=== PATIENT | female | born 1970 | race African-American/Black ===

== ENCOUNTER 2018-06-29 10:33 | Day surgery (SDC) | payer OTHER ==
[2018-06-29] VITALS (11 sets, daily range): BP systolic 119–151; BP diastolic 68–98
[~2018-06-29] VITALS: Ht 172.7 cm; Wt 136.1 kg
--- NOTE | 2018-06-29 06:56 | Pre-Procedure Note/Attestation ---
Pre-Procedure Note/Attestation Complete Prior to Procedure Planned Procedure: right Procedure Narrative: rt shoulder revision scope, sad, biceps tenodesis Indications for Procedure Pre-Operative Diagnosis: rt shoulder biceps tendonitis Attestation I attest that I discussed the nature of the procedure; its benefits; risks and complications; and alternatives (and the risks and benefits of such alternatives ), prior to the procedure, with the patient (or the patient's legal education courses sales representative). I attest that, if there was a reasonable possibility of needing a blood transfusion, the patient (or the patient's legal education courses sales representative) was given the [facility] standardized written summary, pursuant to the [place] Blood Safety Act ([place] Health and Safety Code # 1645, as amended). I attest that I re-evaluated the patient just prior to the surgery and that there has been no change in the patient's H&P, except as documented below: none Yony Fisher MD Jun 29, 2018 06:56
[~2018-06-29 10:33] MED LIST: ceFAZolin 1gm in D5W 55ml IVP ONE; celeBREX 200mg Cap **SURGERY PATIENTS ONLY ORAL ONE; oxyCONTIN 20mg tab ORAL ONE
[2018-06-29] MEDS ORDERED: oxyCONTIN 20mg tab ORAL ONE (11:02)
[2018-06-29] MEDS ORDERED: celeBREX 200mg Cap **SURGERY PATIENTS ONLY ORAL ONE (11:02)
[2018-06-29] MEDS ORDERED: Midazolam 2mg/2ml Inj ONE (11:06)
[2018-06-29] MEDS ORDERED: fentaNYL 100 mcg/2 mL IV ONE (11:06)
[2018-06-29] MEDS ORDERED: Propofol 200mg/20ml IV ONE (11:07)
[2018-06-29] MEDS ORDERED: Ketorolac 30mg Inj ONE (11:07)
[2018-06-29] MEDS ORDERED: Lidocaine 1% MPF 10mg/ml 5ml ONE (11:07)
[2018-06-29] MEDS ORDERED: Ropivacaine 5mg/ml Vial 30ml INJ ONE ×2 (11:07→13:55)
[2018-06-29] MEDS ORDERED: IRON160 MG PO (11:24)
[2018-06-29] MEDS ORDERED: FUROSEMIDE20 M1 ORAL (11:24)
[2018-06-29] MEDS ORDERED: POTASSIUM600 M1 PO (11:24)
[2018-06-29] MEDS ORDERED: LR 1000ml ONE (13:00)
[2018-06-29] MEDS ORDERED: NS Irrig 4000ml IRRIG ONE ×2 (13:00→14:27)
[2018-06-29] MEDS ORDERED: Bupivacaine 0.5% Inj 30 ml vial INJ ONE (13:55)
[2018-06-29] MEDS ORDERED: EPINEPHrine 1mg/1ml Amp ONE (13:56)
[2018-06-29] MEDS ORDERED: LR 1000ml 1,000 ML IVLG SCH (14:25)
--- NOTE | 2018-06-29 14:25 | Anethesia Preoperative Eval ---
Anesthesia Pre-op PMH/ROS General Date of Evaluation: Jun 29, 2018 Time of Evaluation: 12:32 Anesthesiologist: Shira ASA Score: ASA 3 Mallampati Score Class I : Soft palate, uvula, fauces, pillars visible Class II: Soft palate, uvula, fauces visible Class III: Soft palate, base of uvula visible Class IV: Only hard plate visible Mallampati Classification: Class III Surgeon: Natalia Diagnosis: R shoulder pain Surgical Procedure: R shoulder scope Anesthesia History: none Family History: no anesthesia problems Allergies: Coded Allergies: NSAIDS (NON-STEROIDAL ANTI-INFLAMMA (Verified Allergy, Severe, Respiratory distress/Tongue and throat swelling , 06/29/18) Past Medical History Cardiovascular: Denies: HTN, CAD, CO, valve dz, arrhythmia, other Pulmonary: Reports: GINNY; Denies: asthma, COPD, other Gastrointestinal/Genitourinary: Reports: GERD; Denies: CRI, ESRD, other Neurologic/Psychiatric: Reports: depression/anxiety, other - chronic pain; Denies: dementia, CVA, TIA Endocrine: Denies: DM, hypothyroidism, steroids, other HEENT: Denies: cataract (L), cataract (R), glaucoma, SKAGWAY (L), SKAGWAY (R), other Hematology/Immune: Denies: anemia, DVT, bleeding disorder, other Musculoskeletal/Integumentary: Denies: OA, RA, DJD, DDD, edema, other Other: obesity - morbid obesity PMH Narrative: as above PSxH Narrative: BTL BIlateral knee scope, R shoulder, breast surgery Anesthesia Pre-op Phys. Exam Physician Exam Last Vital Signs Date Time Temp Pulse Resp B/P (MAP) Pulse Ox O2 Delivery O2 Flow Rate FiO2 06/29/18 11:11 97.3 76 16 119/68 (85) 99 97.3 06/29/18 11:05 Room Air Constitutional: NAD Neurologic: CN 2-12 intact Cardiovascular: RRR, no M/R/G Respiratory: other - diminished breath sounds Gastrointestinal: other - morbi obesity Airway Exam Mallampati Score: Class III MO: limited Neck: short ROM: limited Teeth: intact Dentures: no upper, no lower Anesthesia Pre-op A/P Labs see chart Studies Pre-op Studies: EKG - SR Risk Assessment & Plan Assessment: ASA 3 Plan: GA with LMA, R brachial plexus block, Outpatient nursing staff unable to place I /V line, after confirming with patient 20 G angiocath was placed into L EJ vein , good back flow, no complications. Status Change Before Surgery: No Pre-Antibiotics Drug: Ancef 2 gr. Given Within 1 Hr of Incision: Yes Time Given: 14:02 Fran Silva MD Jun 29, 2018 14:25
[2018-06-29] MEDS ORDERED: DiphenhydrAMINE 50mg/ml Inj IVP PRN (14:30)
[2018-06-29] MEDS ORDERED: Metoclopramide 10mg/2ml Inj IVP PRN (14:30)
[2018-06-29] MEDS ORDERED: Meperidine 50mg/ml Inj(FOR RIGORS ONLY) IV PRN (14:30)
--- NOTE | 2018-06-29 15:05 | Brief Operative Note ---
Immediate Post Operative Note Operative Note Chief Complaint: rt shoulder pain Pre-op Diagnosis: rt shoulder biceps tendonitis Procedure: rt shoulder scope, sad, biceps tenodesis Post-op Diagnosis: same as pre-op Findings: consistent w/pre-op dx studies Surgeon: md laney Drop Hammer Operator Helper: iris phipps Anesthesiologist: tara ferguson Anesthesia: general Specimen: none Complications: none Condition: stable Fluids: ns Estimated Blood Loss: minimal Drains: none Implant(s) used?: Yes - arthrex Malorie Phipps Jun 29, 2018 15:05
--- NOTE | 2018-06-29 15:25 | Immediate Post-Op Evaluation ---
Immediate Post-Op Evalulation Immediate Post-Op Evalulation Procedure: R shoulder arthroscopy biceps tendon repair Date of Evaluation: Jun 29, 2018 Time of Evaluation: 15:24 IV Fluids: 800 Blood Products: none Estimated Blood Loss: <50 Urinary Output: none Blood Pressure Systolic: 135 Blood Pressure Diastolic: 86 Pulse Rate: 68 Respiratory Rate: 20 O2 Sat by Pulse Oximetry: 100 Temperature (Fahrenheit): 97.4 Pain Score (1-10): 1 Nausea: No Vomiting: No Complications none Patient Status: reacts, patent, none Hydration Status: adequate Fran Silva MD Jun 29, 2018 15:25
[2018-06-29] MEDS ORDERED: Metoclopramide 10mg/2ml Inj ONE (15:57)
[2018-06-29] MEDS ORDERED: Norco 5mg/325mg tab ORAL PRN (18:01)
[2018-06-29] MEDS ORDERED: Tylenol #3 tab (300mg/30mg) ORAL PRN (18:01)
[2018-06-29] MEDS ORDERED: D5 1/2NS 1,000 ML IV SCH (18:01)
[2018-06-29] MEDS ORDERED: HYDROmorphone 1mg/ml Carpuject SUBQ PRN (18:01)
--- NOTE | 2018-06-29 23:45 | Operative Note - Dictated ---
DATE OF OPERATION: 06/29/2018 PREOPERATIVE DIAGNOSES: 1. Right shoulder previous subacromial decompression with continued pain. 2. Right shoulder biceps tenosynovitis. POSTOPERATIVE DIAGNOSES: 1. Right shoulder anterior and superior labral tearing. 2. Right shoulder bone spur underneath the acromion, status post previous subacromial decompression. 3. Right shoulder biceps tenosynovitis in the intertubercular groove. 4. Evidence of type 2 SLAP tear with instability of the biceps anchor. PROCEDURE: 1. Right shoulder arthroscopy and extensive intra-articular shaving. 2. Right shoulder subacromial bursoscopy, bursectomy, and subacromial decompression. 3. Right shoulder debridement and repair of anterior and superior labrum. 4. Right shoulder subacromial tenotomy and subpectoral biceps tenodesis through a unicortical intramedullary hole in the subpectoral area stabilized with a 6.25 mm Linvatec expandable interference screw. SURGEON: Yony Fisher M.D. DETACKER: Malorie Bush PA-C. Correctional Case Manager was present during the actual operative portion of the case and was important and essential part of the operation. During the operation, the pathology assistant held and operated the arthroscopic camera for visualization, assisted by manipulating the leg to help with visualization, and helped with essential parts of the repair process as necessary such as operating surgical instruments under surgeon supervision, suture management, and wound closures. ANESTHESIOLOGIST: Fran Silva M.D. ANESTHESIA: LMA anesthesia combined with interscalene block. ESTIMATED BLOOD LOSS: Less than 20 mL. COMPLICATIONS: None. SURGICAL INDICATION: The patient is a 47-year-old female who sustained the above injury to her shoulder. The patient was treated non-operative initially, but this did not alleviate the patients symptoms. Therefore, after discussing all non-surgical and surgical options, and discussing all foreseeable risk and benefits of surgery, the patient opted for surgical treatment as described above. PATIENT POSITIONING: The patient was brought to the operating room table and was placed on the operating room table. All pressure points were well-padded. General anesthesia was induced and the patient was then placed in the lateral decubitus position. All pressure points were well-padded again and an axillary roll was placed. The patient's shoulder was then prepped and draped in the usual sterile fashion. Time-out was performed and the appropriate preoperative antibiotic was given by the anesthesiologist. EXAMINATION OF SHOULDER UNDER ANESTHESIA: The shoulder was examined under anesthesia with all muscles well relaxed. The shoulder was forward flexed, abducted, and was placed through full range of external and internal rotation. The anterior, posterior, and inferior stability of the shoulder was checked. The exam revealed no evidence of adhesive capsulitis and no evidence of instability. PORTAL PLACEMENT: The posterior portal was established 2 cm inferior and 1 cm medial to the edge of the posterior acromion. A 1-cm skin incision was made using an #11 blade and using the blunt obturator, the cannula was gently placed through the capsule. The mid-glenoid portal was established just lateral to the coracoid process under direct visualization. Direction of the cannula was first established using a spinal needle, and subsequently, the cannula was placed through the capsule with a blunt obturator. DIAGNOSTIC ARTHROSCOPY: The biceps tendon was probed and pulled through the joint for visualization. There was intense synovitis about the biceps. There was extensive tearing of the anterior labrum, however. The biceps anchor was palpated with a probe and was visualized. There was tearing of the superior, anterior, and posterior labrum consistent with type 2 SLAP tear. The posterior labrum and axillary recess was visualized. This was normal and there was no evidence of loose cartilage or fragments in this area. The glenoid articular surface was visualized and it appeared normal. The articular surface of the rotator cuff was visualized and probed next. There was no evidence of articular sided rotator cuff tear extending from the supraspinatus back to the posterior cuff. The humeral head articular surface was then visualized. There was no evidence of articular cartilage damage. Next the anterior labrum, middle glenohumeral ligament, subscapularis tendon, and the anteroinferior glenohumeral ligament were evaluated. These structures were completely normal. At this point, the scope was moved to the mid-glenoid portal and the posterior structures including the posterior labrum, posterior capsule, and posterior cuff were visualized. These structures were completely normal. The subscapularis recess was devoid of any loose bodies and the anterior capsule was well attached to the humeral neck. The middle and anteroinferior glenohumeral ligament was visualized. These structures were completely normal. OPERATIVE DEBRIDEMENTS AND REPAIR: Care was given to all partial-thickness tears and frayed structures in the shoulder joint. The frayed rotator cuff and labrum was debrided using a shaver initially through the anterior portal and subsequently through the posterior portal to complete the debridement. This allowed for smooth debridement of all affected structures and all loose fragments were removed. DIAGNOSTIC BURSOSCOPY AND SUBACROMIAL DECOMPRESSION: The subacromial bursa was entered from the posterior portal. The anterior portal was established under the CA ligament using a switching stick. Subacromial arthroscopy was initiated. There was extensive bursitis and thickened and inflamed bursa tissue present. The CA ligament appeared to be scuffed and frayed. The shaver was placed through the anterior cannula and debridement of the hypertrophic bursa tissue was accomplished. Once visualization was adequate, a lateral portal was established using a blunt trochar in the mid portion of the acromion bone in the anterior-posterior direction and approximately 2 cm lateral to the lateral edge of the acromion. Using combination of shaver and electrocautery, the CA ligament was released from the undersurface of the acromion and a complete bursectomy was accomplished. At this point, a subacromial decompression was performed using a florence initially taking off 5-8 mm of the anterolateral edge of the acromion from the lateral portal and viewing from the posterior portal. Then the lateral border of the undersurface of the acromion was decompressed to the same depth as the anterolateral edge. A posterior trough was then created in the acromion in line with the posterior edge of the clavicle. At this point, the scope was placed in the lateral portal and the subacromial decompression was performed from the posterior portal decompressing the undersurface of the acromion to depth of 5-8 mm. The decompression was performed anterior to the previously marked trough all the way medially to the level of the AC joint. At all times, care was given not to take off too much bone in order to avoid risk of fracture of the acromion. An excellent subacromial decompression was performed in this fashion. At this point, the bursal side of the rotator cuff was examined. All the bursa over the rotator cuff was removed and the rotator cuff was examined with a probe. The arm was placed into external rotation, neutral, and then internal rotation and there was no evidence of tear of the rotator cuff. The scope was then placed in the posterior portal and the subacromial decompression was rechecked to assure there was no area of bone spur that would be still impinging onto the rotator cuff. Care was given to the biceps tendon. Intra-articularly, a rack and hitch stitch was placed into the biceps tendon for control. At this point, the biceps tendon was then tenotomized at the level of the glenoid. This took the pressure off the superior labrum in the area of the flap tearing. The biceps was then retracted through the anterosuperior portal. At this point, care was given to subpectoral biceps tenodesis. A separate and distinct incision was made over the subpectoral area in the axillary fold. The incision was taken through subcutaneous tissue. The pectoralis was retracted superiorly and the humerus was palpated. A retractor was placed superior and lateral as well as another one on the medial side. The biceps tendon could be palpated. The biceps sheath was opened and the biceps was retracted out. Once this was completed, there was evidence of tenosynovitis of the intertubercular groove and a partial tear of the biceps. The biceps was then debrided. A 7 mm unicortical hole was made into the humerus and the biceps tendon was then stitched using modified Krackow stitches with #2 FiberWire suture approximately 1.5 cm proximal to the myotendinous junction. Once this was completed, a 6.25 mm Linvatec expanded screw was used to dock the tendon inside the intramedullary canal. The screw was then tightened and expanded until excellent fixation was obtained. The excess biceps tendon was cut. The biceps was tensioned using a probe and there was excellent tension of the biceps, there was excellent repair. At this point, all wounds were thoroughly irrigated using copious amount of fluid. The subpectoral incision was closed using 2-0 Vicryl suture and 3-0 Monocryl suture. The portals were closed using 3-0 nylon sutures. Sterile dressing was applied. Lap counts and instrument counts were correct. Yony Fisher M.D. DR: Lupis JOB#: [id number] CC: DANNY
== END 2018-06-29 17:15 | disposition home or self-care (01) ==
LOC: SUR 10:33
DX: S43.431A Superior glenoid labrum lesion of right shoulder, initial encounter (principal); M75.21 Bicipital tendinitis, right shoulder; X58.XXXA Exposure to other specified factors, initial encounter; Y92.89 Other specified places as the place of occurrence of the external cause; Y99.8 Other external cause status; M77.8 Other enthesopathies, not elsewhere classified; K21.9 Gastro-esophageal reflux disease without esophagitis; F32.9 Major depressive disorder, single episode, unspecified; F41.9 Anxiety disorder, unspecified; G89.29 Other chronic pain; E66.01 Morbid (severe) obesity due to excess calories
CPT/HCPCS: 23430; 29822; J0690; J1885; J2250; J2405; J2704; J2765; J2795; J3010; 94003; 94150